=== PATIENT | female | born 1965 | race Caucasian/White ===

== ENCOUNTER 2018-01-14 17:53 | Inpatient (IN) | payer BC ==
[~2018-01-14] VITALS: Ht 170.2 cm; Wt 78.0 kg
[2018-01-14 17:55] VITALS: BP_SYST 128
[2018-01-14] MEDS ORDERED: KETOROLAC TROMETHAMINE 60 MG/2 ML VIAL IM ONE (18:30)
[2018-01-14 18:47] LABS: BASOPHILS % (AUTO) 0.7 % (0.0-2.0); EOSINOPHILS # (AUTO) 0.1 K/uL (0.0-0.4); EOSINOPHILS % (AUTO) 1.9 % (0.0-4.0); HEMATOCRIT 38.3 % (36-48); HEMOGLOBIN 12.3 g/dL (12.0-16.0); LYMPHOCYTES # (AUTO) 1.9 K/uL (1.0-5.5); LYMPHOCYTES % (AUTO) 31.5 % (20.5-51.5); MEAN CORPUSCULAR HEMOGLOBIN 28 pg (27-31); MEAN CORPUSCULAR HGB CONC 32 % (32-36); MEAN CORPUSCULAR VOLUME 86 fL (79.0-98.0); MONOCYTES # (AUTO) 0.4 K/uL (0.0-1.0); NEUTROPHILS # (AUTO) 3.5 K/uL (1.8-7.7); NEUTROPHILS % (AUTO) 59.9 % (40.0-70.0); PLATELET COUNT (AUTO) 238 K/uL (130-430); RED BLOOD CELL COUNT(AUTO) 4.47 MIL/uL (4.2-6.2); RED CELL DISTRIBUTION WIDTH 12.8 % (9.0-15.0); WHITE BLOOD COUNT (AUTO) 5.9 K/uL (4.8-10.8)
[2018-01-14 18:58] LABS: CALCIUM 9.5 mg/dL (8.4-11.0); CREATININE 0.8 mg/dL (0.55-1.30); POTASSIUM 3.7 mmol/L (3.5-5.1)
[2018-01-14 19:03] LABS: TOTAL BILIRUBIN 0.4 mg/dL (0.0-1.0)
[2018-01-14] MEDS ORDERED: ASPIRIN 81 MG TAB.CHEW PO ONE (19:15)
[2018-01-14] MEDS ORDERED: PANT20TA2 PO (19:34)
[2018-01-14] MEDS ORDERED: MORPHINE 2 MG/ML INJ. SYRINGE IVP PRN ×2 (19:45→22:00)
[2018-01-14] MEDS ORDERED: ASPIRIN 325 MG TABLET PO ONE (19:45)
[2018-01-14 20:31] VITALS: BP_SYST 122
[2018-01-14] MEDS ORDERED: HYDROcodone/ACETAMIN 5-325 MG TAB (NORCO/ VICODIN) PO PRN (22:00)
[2018-01-14] MEDS ORDERED: ACETAMINOPHEN 325 MG TABLET PO PRN (22:00)
[2018-01-14] MEDS ORDERED: D5NS 1,000 ML IV SCH (22:15)
[2018-01-14] MEDS: ALPRAZolam 0.25 MG TABLET PO PRN (22:51)
[2018-01-14 23:50] VITALS: BP_SYST 116
[2018-01-15 08:00] VITALS: BP_SYST 110
[2018-01-15] MEDS: PANTOPRAZOLE SODIUM 40 MG TAB PO SCH (08:24)
[2018-01-15] MEDS: ALPRAZolam 0.25 MG TABLET PO PRN ×2 (08:24→23:19)
[2018-01-15] MEDS: ASPIRIN 325 MG TABLET PO SCH (08:24)
[2018-01-15 10:25] LABS: THYROID STIMULATING HORMONE 1.29 uIu/mL (0.36-3.74)
[2018-01-15] MEDS ORDERED: ENOXAPARIN SODIUM 80 MG/0.8 ML SYRINGE SUBCUT ONE (10:30)
[2018-01-15] MEDS ORDERED: ATORVASTATIN 10 MG TABLET PO ONE (11:45)
[2018-01-15 12:00] VITALS: BP_SYST 112
[2018-01-15 16:52] VITALS: BP_SYST 102; BP_SYST 98
[2018-01-15 20:00] VITALS: BP_SYST 106
[2018-01-15] MEDS: ENOXAPARIN SODIUM 80 MG/0.8 ML SYRINGE SUBCUT SCH (21:00)
[2018-01-15] MEDS: MILK OF MAGNESIA 30 ML UDC PO PRN (22:16)
[2018-01-15 23:03] VITALS: BP_SYST 100
[2018-01-16 08:00] VITALS: BP_SYST 106
[2018-01-16] MEDS: ENOXAPARIN SODIUM 80 MG/0.8 ML SYRINGE SUBCUT SCH (09:00)
[2018-01-16] MEDS ORDERED: ATORVASTATIN 10 MG TABLET PO SCH (09:00)
[2018-01-16] MEDS ORDERED: REGADENOSON 0.4 MG/5 ML SYRINGE IVP ONE (09:30)
[2018-01-16] MEDS: PANTOPRAZOLE SODIUM 40 MG TAB PO SCH (11:43)
[2018-01-16] MEDS: ALPRAZolam 0.25 MG TABLET PO PRN (11:44)
[2018-01-16] MEDS: ASPIRIN 325 MG TABLET PO SCH (11:44)
[2018-01-16] MEDS: MILK OF MAGNESIA 30 ML UDC PO PRN (11:44)
[2018-01-16 12:42] VITALS: BP_SYST 119
[2018-01-16 14:37] VITALS: BP_SYST 119
== END 2018-01-16 14:54 | disposition home or self-care (01) | DRG 392 ==
LOC: SED 17:53 → STU 19:37
PROVIDERS: ADMIT Internal Medicine Hospice and Palliative Medicine; ATTEND Internal Medicine Hospice and Palliative Medicine
DX: K21.9 Gastro-esophageal reflux disease without esophagitis (principal); I24.9 Acute ischemic heart disease, unspecified; M79.7 Fibromyalgia
CPT/HCPCS: 36415; 71045; 80053; 80061; 82550-TC; 84443-TC; 84484; 85025; 93005; 93017; 93306; A9500; J1650; J1885; J2785; J7042

== ENCOUNTER 2022-09-04 18:02 | Emergency (ER) | payer BC ==
[~2022-09-04] VITALS: Ht 167.6 cm; Wt 81.6 kg
[~2022-09-04 18:02] MED LIST: PANT20TA2 PO
[2022-09-04 18:30] VITALS: BP_SYST 105
--- NOTE | 2022-09-04 18:39 | NUR ---
PT TO CT SCAN
--- NOTE | 2022-09-04 20:15 | NUR ---
ER examining patient in the triage room.
[2022-09-04 20:30] VITALS: BP_SYST 110
--- NOTE | 2022-09-04 20:30 | NUR ---
Patient given written and verbal discharge instructions and verbalizes understanding. ER MD discussed with patient the results and treatment provided. Patient in stable condition. ID arm band removed. NO Rx of given. Patient educated on pain management and to follow up with PMD. Pain Scale 2/10. Opportunity for questions provided and answered. Medication side effect fact sheet provided.
== END 2022-09-04 20:30 | disposition home or self-care (01) ==
LOC: SED 18:02
DX: S00.03XA Contusion of scalp, initial encounter (principal); Z79.899 Other long term (current) drug therapy; W20.8XXA Other cause of strike by thrown, projected or falling object, initial encounter; Y93.89 Activity, other specified; Y92.89 Other specified places as the place of occurrence of the external cause; Y99.8 Other external cause status
CPT/HCPCS: 70450-TC; 76376; 99284